=== PATIENT | male | born 1990 | race Caucasian/White ===

== ENCOUNTER 2022-01-08 13:13 | Emergency (ER) | payer OTHER ==
[2022-01-08] MEDS ORDERED: BACTROBAN OINT22 GM EXT (17:42)
== END 2022-01-08 19:55 | disposition home or self-care (01) ==
LOC: ER1 13:13
DX: S09.90XA Unspecified injury of head, initial encounter (principal); S93.401A Sprain of unspecified ligament of right ankle, initial encounter; S13.9XXA Sprain of joints and ligaments of unspecified parts of neck, initial encounter; S80.812A Abrasion, left lower leg, initial encounter; V49.40XA Driver injured in collision with unspecified motor vehicles in traffic accident, initial encounter; Y92.410 Unspecified street and highway as the place of occurrence of the external cause
CPT/HCPCS: 70450; 71045; 72125; 73610; 73630; 90471; 90715; 99284